=== PATIENT | female | born 1955 | race Caucasian/White ===

== ENCOUNTER 2021-01-22 09:57 | Outpatient (AMB) | payer MEDICARE, MEDICAID, SELFPAY ==
--- NOTE | 2021-01-22 09:53 | A.OFFPC_ITS ---
Intake Visit Reasons: Increased Headaches and spitting up Allergies latex (LATEX) Allergy (Intermediate, Verified 08/21/21 16:25) RASH, ITCHING aspirin (Aspirin) Allergy (Unknown, Verified 08/21/21 16:25) IRRITATES STOMACH bee pollen Allergy (Unknown, Verified 08/21/21 16:25) swelling, trouble breathing penicillin G (Penicillin G) Allergy (Unknown, Verified 08/21/21 16:25) RASH Medication List - Last Reconciled 01/22/21 by Erlin Jordan MD albuterol sulfate 2.5 mg (3 mL) inhalation Q6H 30 days PRN albuterol sulfate 90 mcg/actuation 2 puffs PO QID PRN apixaban (Eliquis) 5 mg PO BID baclofen 20 mg PO TID PRN divalproex 125 mg PO BID duloxetine 30 mg PO BID ergocalciferol (vitamin D2) (Vitamin D2) 1,250 mcg PO QWEEK fluticasone propionate 50 mcg/actuation 1 - 2 sprays intranasal DAILY PRN furosemide 20 mg PO DAILY 30 days PRN gabapentin 100 mg PO TID 30 days glycopyrrolate 2 mg PO BID-TID PRN ipratropium-albuterol 0.5 mg-3 mg(2.5 mg base)/3 mL 3 mL inhalation QID lidocaine 5% 1 patch topical DAILY 30 days miscellaneous medical supply Overbed Bedside Table miscellaneous medical supply [place] miscellaneous medical supply Transport Wheelchair nebulizers use q6hrs PRN nystatin 1 appl topical BID 30 days omeprazole 20 mg PO DAILY oxycodone 10 mg PO Q6H 14 days PRN ProAir HFA 90 mcg/actuation (albuterol sulfate) 2 puffs PO Q6H PRN NS riboflavin (vitamin B2) 100 mg PO DAILY 30 days simvastatin 5 mg PO BEDTIME thiamine HCl (vitamin B1) (Vitamin B-1) 100 mg PO DAILY 30 days trazodone 50 mg PO BEDTIME 30 days PRN Tobacco use date assessed: 01/22/21 Last assessed Fall Risk: 01/22/21 HPI Increased Headaches and spitting up HPI Details Due to the COVID-19 pandemic, we are limiting [id number] visits to patient's or have an absolute need for such visits Patient's follow-up visit / consultation today is done over the phone - this is a Telehealth visit Patient's current medications have been reviewed and verified with patient and / or caregiver / proxy and have been updated accordingly in the medication list [facility] Medical History Acquired hypothyroidism Anxiety Benign essential hypertension Bipolar disorder COPD (chronic obstructive pulmonary disease) Deep vein thrombosis (DVT) of left lower extremity Dementia Headache Insomnia Intertrigo Left leg pain Lumbar degenerative disc disease Morbid obesity Neuropathic pain, leg, bilateral Pure hypercholesterolemia Surgical History Status post endovenous radiofrequency ablation of saphenous vein Family History Father CVD (cardiovascular disease) Cancer Mother CVD (cardiovascular disease) Cancer Stroke Son Breast cancer Social History Housing: House Alcohol intake: former Patient Tobacco Use Status: Former Tobacco user Tobacco use type: Cigarette e-Cigarette/Vaping Use: Never Used Second Hand Smoke Exposure: Yes service: No Current occupational status: disabled Cognitive needs: No Hearing needs: No Vision needs: No Questionnaire PHQ-9 Over the last 2 weeks, how often have you been bothered by any of the following problems? 1. Little interest or pleasure in doing things: not at all 2. Feeling down, depressed, or hopeless: not at all 3. Trouble falling or staying asleep, or sleeping too much: not at all 4. Feeling tired or having little energy: not at all 5. Poor appetite or overeating: not at all 6. Feeling bad about yourself - or that you are a failure or have let yourself or your family down: not at all 7. Trouble concentrating on things, such as reading the newspaper or watching television: not at all 8. Moving or speaking so slowly that other people could have noticed. Or the opposite - being so fidgety or restless that you have been moving around a lot more than usual: not at all 9. Thoughts that you would be better off or of hurting yourself in some way: not at all Total score: 0 Source: Developed by Drs. Blayne Alexandra Carter Kurt Kroenke and colleagues, with an educational samantha from [employer]. Thrive Questionnaire Date Thrive assessed: 01/22/21 I am a: Patient What is your living situation today?: I have a steady place to live Within the past 12 months, did the food you bought not last and you didn't have the money to get more?: Never true Within the past 12 months, did you worry whether your food would run out before you got money to buy more?: Never true Do you have trouble paying for medicines?: No Do you have trouble getting transportation to medical appointments?: No Do you have trouble paying your heating and electricity bill?: No Do you have trouble taking care of your child, family member or friend?: No Do you have trouble with day-to-day activities such as bathing, preparing meals, shopping, managing finances, etc.?: No Are you currently unemployed and looking for a job?: No Are you interested in more education?: No AUDIT C Alcohol Use Questionnaire (AUDIT-C) 1. How often do you have a drink containing alcohol?: Never 3. How often do you have six or more drinks on one occasion?: Never Total Score: 0 NICOLE-7 AMB Questionnaire NICOLE-7 Date NICOLE - 7 assessed: 01/22/21 Feeling nervous, anxious, or on edge: 0 = Not at all Not being able to stop or control worryin = Not at all Worrying too much about different things: 0 = Not at all Trouble relaxin = Not at all Being so restless that it is hard to sit still: 0 = Not at all Becoming easily annoyed or irritable: 0 = Not at all Feeling afraid as if something awful might happen: 0 = Not at all Total NICOLE-7 score (0-4 normal; 5-9 mild; 10-14 moderate; 15-21 severe): 0 Source: Developed by Drs. Blayne Waters, Niraj Russ and colleagues, with an educational samantha from [employer]. Physical exam (Primary Care) Vital Signs: Physical examination is not performed as visit / consultation today is done over the phone - Telehealth visit All physical findings indicated here, if present, are as per patient's and / or caregivers / proxy's report Tobacco/Smoking Status: Tobacco use Status Tobacco use date assessed 01/22/21 01/22/21 09:56 Patient Tobacco Use Status Former Tobacco user 01/22/21 09:56 Tobacco use type Cigarette 01/22/21 09:56 PHQ-9: PHQ-9 Score PHQ-9: Total score 0 01/22/21 11:21 Date Thrive assessed: 01/22/21 Telehealth Telehealth Location of provider rendering services: practice address Location of patient: address on file Patient Identification confirmed using: Name, : Yes Telehealth method: voice only Patient verbally consented to treatment: Yes Patient verbally consented to billing insurance company: Yes Patient informed of any privacy concerns related to visit: Yes Coding Level of Care Code Admin Sign Off/No Billing Diagnoses Left leg pain M79.605 Chronic obstructive pulmonary disease, unspecified COPD type J44.9 COPD type: unspecified COPD
== END 2021-01-22 11:56 | disposition home or self-care (01) ==
LOC: HO.HMGH 09:57
PROVIDERS: PCP Internal Medicine; Visit Provider Internal Medicine
DX: M79.605 Pain in left leg (principal); J44.9 Chronic obstructive pulmonary disease, unspecified
CPT/HCPCS: 99499

== ENCOUNTER 2021-03-04 12:43 | Outpatient (REF) | payer MEDICARE, MEDICAID, SELFPAY ==
--- NOTE | ~2021-03-04 | XR_ITS ---
EXAMINATION: XR CHEST 2V XR TIBIA FIBULA LT 2V XR TIBIA FIBULA RT 2V CLINICAL INFORMATION: COPD. Pain in the bilateral lower extremities COMPARISON: Chest x-ray dated 08/27/2019 FINDINGS: CHEST: Normal symmetric lung volumes. No parenchymal consolidation. No pleural effusion. No pneumothorax. Cardiomediastinal silhouette and pulmonary vascularity are within normal limits. Aorta is atherosclerotic. No acute osseous abnormalities. XR TIB/FIB, BILATERAL: No acute fracture or dislocation. Bones appear demineralized. Moderate tricompartmental degenerative changes of each knee. Diffuse mild benign-appearing periosteal reaction present along the bilateral tibiae/fibulae. Soft tissues unremarkable. XR/XR tibia fibula RT 2V IMPRESSION: * Chest: No acute findings. * Bilateral tibia/fibula: No acute findings. Diffuse mild benign-appearing periosteal reaction along the bilateral tibia/fibula may pertain to chronic venous stasis.
--- NOTE | ~2021-03-04 | XR_ITS ---
EXAMINATION: XR CHEST 2V XR TIBIA FIBULA LT 2V XR TIBIA FIBULA RT 2V CLINICAL INFORMATION: COPD. Pain in the bilateral lower extremities COMPARISON: Chest x-ray dated 08/27/2019 FINDINGS: CHEST: Normal symmetric lung volumes. No parenchymal consolidation. No pleural effusion. No pneumothorax. Cardiomediastinal silhouette and pulmonary vascularity are within normal limits. Aorta is atherosclerotic. No acute osseous abnormalities. XR TIB/FIB, BILATERAL: No acute fracture or dislocation. Bones appear demineralized. Moderate tricompartmental degenerative changes of each knee. Diffuse mild benign-appearing periosteal reaction present along the bilateral tibiae/fibulae. Soft tissues unremarkable. XR/XR chest 2V IMPRESSION: * Chest: No acute findings. * Bilateral tibia/fibula: No acute findings. Diffuse mild benign-appearing periosteal reaction along the bilateral tibia/fibula may pertain to chronic venous stasis.
--- NOTE | ~2021-03-04 | XR_ITS ---
EXAMINATION: XR CHEST 2V XR TIBIA FIBULA LT 2V XR TIBIA FIBULA RT 2V CLINICAL INFORMATION: COPD. Pain in the bilateral lower extremities COMPARISON: Chest x-ray dated 08/27/2019 FINDINGS: CHEST: Normal symmetric lung volumes. No parenchymal consolidation. No pleural effusion. No pneumothorax. Cardiomediastinal silhouette and pulmonary vascularity are within normal limits. Aorta is atherosclerotic. No acute osseous abnormalities. XR TIB/FIB, BILATERAL: No acute fracture or dislocation. Bones appear demineralized. Moderate tricompartmental degenerative changes of each knee. Diffuse mild benign-appearing periosteal reaction present along the bilateral tibiae/fibulae. Soft tissues unremarkable. XR/XR tibia fibula LT 2V IMPRESSION: * Chest: No acute findings. * Bilateral tibia/fibula: No acute findings. Diffuse mild benign-appearing periosteal reaction along the bilateral tibia/fibula may pertain to chronic venous stasis.
[2021-03-04 13:08] LABS: MANUAL DIFF FLAG NO
[2021-03-04 13:24] LABS: Basophils Percent Auto 0.3 % (0-2); Eosinophils Absolute Auto 0.2 X10*3/uL (0.0-0.4); Eosinophils Percent Auto 2.6 % (0-4); Hematocrit 48.1 % (37.0-47.0); Hemoglobin 15.6 g/dl (12.0-16.0); Imm Gran Abs Auto 0.08 X10*3/uL (0.00-0.03); Lymphocytes Absolute Auto 2.2 X10*3/uL (1.2-4.9); Lymphocytes Percent Auto 27.7 % (20-40); Mean Corpuscular HGB Conc 32.4 g/dl (31.0-35.0); Mean Corpuscular Hemoglobin 30.1 pg (27.0-33.0); Mean Corpuscular Volume 92.7 fL (80.0-98.0); Mean Platelet Volume 9.1 fL (9.4-12.3); Monocytes Absolute Auto 0.4 X10*3/uL (0.1-1.2); Monocytes Percent Auto 5.4 % (2-11); Platelet Count 299 X10*3/uL (160-400); Red Blood Count 5.19 X10*6/uL (4.20-5.50)
[2021-03-04 13:49] LABS: Alanine Aminotransferase 13 U/L (0-31); Albumin Level 4.3 g/dL (3.5-5.0); Alkaline Phosphatase 102 U/L (39-117); Anion Gap 15 (12-20); Aspartate Amino Transferase 17 U/L (5-31); Bilirubin Total 0.3 mg/dL (0.0-1.0); Blood Urea Nitrogen 6 mg/dL (9-16); C Reactive Protein 0.23 mg/dL (< or = 0.50); Calcium 9.5 mg/dL (8.4-10.2); Carbon Dioxide 31 mmol/L (22-29); Chloride 102 mmol/L (96-108); Cholesterol 230 mg/dL; Estimated Glomerular Filt Rate > 60; Glucose Fasting 106 mg/dL (60-99); HDL Cholesterol 70 mg/dL; LDL Cholesterol Calculated 146 mg/dl; Potassium 4.2 mmol/L (3.3-5.1); Sodium 144 mmol/L (135-145); Total Protein 7.5 g/dL (6.5-8.0); Triglycerides 72 mg/dL
[2021-03-04 14:01] LABS: Free T4 (Free Thyroxine) 1.11 ng/dL (0.71-1.85); Thyroid Stimulating Hormone 1.55 uIU/mL (0.32-4.0)
[2021-03-04 14:15] LABS: Folate 16.3 ng/mL (> or = 4.0); Vitamin B12 820 pg/mL (200-900)
[2021-03-04 14:28] LABS: Erythrocyte Sedimentation Rate 23 MM/HR (0-20)
== END 2021-03-04 12:44 | disposition home or self-care (01) ==
LOC: HO.LAB 12:43
PROVIDERS: PCP Internal Medicine; Visit Provider Internal Medicine
DX: I10 Essential (primary) hypertension (principal); M79.604 Pain in right leg; M79.605 Pain in left leg; J44.9 Chronic obstructive pulmonary disease, unspecified; E55.9 Vitamin D deficiency, unspecified; G57.93 Unspecified mononeuropathy of bilateral lower limbs; F03.90 Unspecified dementia, unspecified severity, without behavioral disturbance, psychotic disturbance, mood disturbance, and anxiety; E03.9 Hypothyroidism, unspecified; E78.00 Pure hypercholesterolemia, unspecified; M51.36 Other intervertebral disc degeneration, lumbar region
CPT/HCPCS: 36415; 71046; 73590; 80053; 80061; 82306; 82607; 82746; 84439; 84443; 85025; 85652; 86140